=== PATIENT | male | born 1990 | race Caucasian/White ===

== ENCOUNTER 2018-08-31 16:46 | Emergency (ER) | payer SELFPAY ==
[2018-08-31] MEDS ORDERED: Diphtheria,Pertussis(Acell),Tetanus Vaccine 0.5 ML Syringe ONE (16:50)
[2018-08-31] MEDS ORDERED: Sodium Chloride 0.9% 1,000 ML IV ONE ×2 (16:50→16:51)
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
--- NOTE | 2018-09-01 13:14 | CR ---
EXAM DATE: 08/31/18 PATIENT'S AGE: 28 Patient: DARRYL WILSON Facility: [place], [place] Site . Site : 1990 Study: XRay Chest [id number] 5:05:45 PM Ordering Physician: Doctor Dotson Final Report: INDICATION: Trauma. TECHNIQUE: One view. IMPRESSION: Trauma board limits sensitivity. Possible ET tube roughly 6 cm above the conrad , above the top of the clavicles. If this is an ET tube it should be advanced 2- 3 cm. No other significant finding. No fracture. No contusion of lung parenchyma. Normal pulmonary vascularity and cardiomediastinal silhouette. Dictated by Terry Abad MD @ Aug 31 2018 5:31PM (Electronic Signature) Report Signed by Proxy. DAVID
== END 2018-08-31 17:06 ==
LOC: MW.ED 16:46
DX: S01.90XA Unspecified open wound of unspecified part of head, initial encounter (principal); Z23 Encounter for immunization
CPT/HCPCS: 71045; 90471; 99285; G0390